=== PATIENT | male | born 1935 | race Caucasian/White ===

== ENCOUNTER 2023-07-02 14:02 | Outpatient (AMB) | payer MEDICARE, BC, SELFPAY ==
--- NOTE | 2023-07-02 14:05 | MHC.PC.OV ---
Vital Signs 07/02/23 14:11 07/02/23 14:20 Height 5 ft 9 in Weight 179 lb 8 oz BMI 26.5 BP 148/82 H 138/88 Blood Pressure Location Rt brachial Rt brachial Position Sitting Sitting Respiration 16 Pulse 84 Pulse Source Pulse Oximeter Temp 98.6 F Temp Source Oral Pulse Oximetry (%) 97 Oxygen Delivery Method Room Air Intake Visit Reasons: transfer from [facility] Intake Note: New patient visit Library Circulation Clerk Required: No Allergies No Known Allergies Allergy (Verified 07/02/23 14:09) Medication List - Last Reconciled 07/02/23 by Bernadette Sequeira MD losartan-hydrochlorothiazide 100-12.5 mg 1 tab PO DAILY multivitamin 1 tab PO DAILY Tobacco use date assessed: 07/02/23 Fall risk assessment: No Falls in past year Last assessed Fall Risk: 07/02/23 Dental Screening Dental Screen Date: 07/02/23 Did you have a dental visit in the last 12 months?: Yes Did you have a dental problem in the last 6 months where you did not have access to dental care?: No Was dental information given to patient?: Patient has dentist HPI HPI Comments History of Present Illness Details The patient is a 87 year old male with a past medical history of bladder cancer, hypertension presenting to reestablish care. CV: on losartan-hctz 100-12.5mg daily. Urology: History of papillary urothelial cancer s/p TURB. PCG treatment September 08. Follows with Dr Oliveira. Goes every 3-6 months. Saw this months. Very active. Lots of energy. Still doing yoga, walking [facility] Medical History (Updated 07/02/23 @ 15:08 by Bernadette Sequeira MD) HTN (hypertension) GERD (gastroesophageal reflux disease) Bladder cancer Social History Housing: House Patient Tobacco Use Status: Never used Tobacco e-Cigarette/Vaping Use: Never Used Second Hand Smoke Exposure: No service: No Current occupational status: retired Cognitive needs: No Hearing needs: No Vision needs: No Review of Systems Const Details: ROS CONSTITUTIONAL: Denies weight loss, fever and chills. HEENT: Denies changes in vision and hearing. RESPIRATORY: Denies SOB and cough. CV: Denies palpitations and CP GI: Denies abdominal pain, nausea, vomiting and diarrhea. : Denies dysuria and urinary frequency. MSK: Denies new myalgia and joint pain. SKIN: Denies rash and pruritus. NEUROLOGICAL: Denies headache PSYCHIATRIC: Denies recent changes in mood. Physical exam (Primary Care) Vital Signs: Last Vital Signs Temp 98.6 F 07/02/23 14:11 Pulse 84 07/02/23 14:11 Resp 16 07/02/23 14:11 BP 138/88 07/02/23 14:20 Pulse Ox 97 07/02/23 14:11 Oxygen Delivery Method Room Air 07/02/23 14:11 BMI result Body Mass Index 26.5 Tobacco/Smoking Status: Tobacco use Status Tobacco use date assessed 07/02/23 07/02/23 14:16 Patient Tobacco Use Status Never used Tobacco 07/02/23 14:16 e-Cigarette/Vaping Use Never Used 07/02/23 14:16 PHYSICAL EXAM: GENERAL: Alert and oriented x 3. NAD EYES: EOMI. Anicteric. HENT: Moist mucous membranes. No scleral icterus. No cervical lymphadenopathy. LUNGS: Clear to auscultation bilaterally. CARDIOVASCULAR: Regular rate and rhythm. No murmur. No JVD. ABDOMEN: Soft, non-tender +bs EXTREMITIES: No edema. Non-tender. SKIN: No rashes or lesions. Warm. NEUROLOGIC: No focal neurological deficits. PSYCHIATRIC: Cooperative. Appropriate mood and affect Assessment and Plan Assessment & Plan (1) Bladder cancer: Code(s): C67.9 - Malignant neoplasm of bladder, unspecified Qualifiers: Bladder location: unspecified site Qualified Code(s): C67.9 - Malignant neoplasm of bladder, unspecified (2) GERD (gastroesophageal reflux disease): Code(s): K21.9 - Gastro-esophageal reflux disease without esophagitis Qualifiers: Esophagitis presence: esophagitis presence not specified Qualified Code(s): K21.9 - Gastro-esophageal reflux disease without esophagitis (3) HTN (hypertension): Code(s): I10 - Essential (primary) hypertension Qualifiers: Hypertension type: unspecified Qualified Code(s): I10 - Essential (primary) hypertension Orders: Orders Complete Blood Count Auto Diff Today C67.9 - Malignant neoplasm of bladder, unspecified, I10 - Essential (primary) hypertension, K21.9 - Gastro-esophageal reflux disease without esophagitis Comprehensive Met. Panel Today C67.9 - Malignant neoplasm of bladder, unspecified, I10 - Essential (primary) hypertension, K21.9 - Gastro-esophageal reflux disease without esophagitis Lipid Panel Today C67.9 - Malignant neoplasm of bladder, unspecified, I10 - Essential (primary) hypertension, K21.9 - Gastro-esophageal reflux disease without esophagitis Coding Level of Care Code Est Pt Level 4 (18509) Complex EM visit Add On G2211 Diagnoses Malignant neoplasm of urinary bladder, unspecified site C67.9 Bladder location: unspecified site Gastroesophageal reflux disease, unspecified whether esophagitis present K21.9 Esophagitis presence: esophagitis presence not specified Hypertension, unspecified type I10 Hypertension type: unspecified
[2023-07-02 14:11] VITALS: BP 148/82; PULSE 84; RESP 16; TEMP 37; O2SAT 97; BMI 26.5
[2023-07-02 14:20] VITALS: BP 138/88
== END 2023-07-02 14:49 | disposition home or self-care (01) ==
PROVIDERS: PCP Internal Medicine; Visit Provider Internal Medicine
DX: K21.9 Gastro-esophageal reflux disease without esophagitis (principal); C67.9 Malignant neoplasm of bladder, unspecified; I10 Essential (primary) hypertension
CPT/HCPCS: 99214